=== PATIENT | female | born 1985 ===

== ENCOUNTER 2021-07-23 16:57 | Inpatient (IN) | payer SELFPAY ==
[2021-07-23] MEDS ORDERED: PROMETHAZINE 25 MG TAB PO PRN (17:17)
[2021-07-23] MEDS ORDERED: ONDANSETRON 4 MG/2 ML INJ IV PRN (17:17)
[2021-07-23] MEDS ORDERED: ACETAMINOPHEN 325 MG TAB PO PRN (17:17)
[2021-07-23] MEDS ORDERED: CARBOPROST TROMETHAMINE 250 MCG/1 ML INJ IM PRN (17:17)
[2021-07-23] MEDS ORDERED: METHYLERGONOVINE MALEATE 0.2 MG/ML VIAL IM PRN (17:17)
[2021-07-23] MEDS ORDERED: miSOPROStol 200 MCG TAB PR PRN (17:17)
[2021-07-23] MEDS ORDERED: OXYTOCIN 10 UNIT/1 ML INJ IM PRN (17:17)
[2021-07-23] MEDS ORDERED: NalbUPHINE 10 MG/1 ML INJ IV PRN (17:17)
[2021-07-23] MEDS ORDERED: ePHEDrine SULFATE 50 MG/1 ML INJ IV PRN (17:17)
[2021-07-23] MEDS ORDERED: TERBUTALINE 1 MG/1 ML INJ SUB-Q PRN (17:17)
[2021-07-23] MEDS ORDERED: NALOXONE 0.4 MG/1 ML INJ IV PRN (17:17)
[2021-07-23] MEDS ORDERED: MINERAL OIL 30 ML ORAL LIQD PO PRN (17:17)
[2021-07-23] MEDS ORDERED: LOPERAMIDE 2 MG CAP PO PRN (17:17)
[2021-07-23] MEDS ORDERED: OXYTOCIN DRIP 30 UNITS/500 ML BAG IV SCH (18:00)
[2021-07-23 19:31] LABS: Hematocrit 39.8 % (30.3-42.9); Hemoglobin 13.1 gm/dl (10.1-14.3); Mean Corpuscular HGB Conc 33 % (30-34); Mean Corpuscular Volume 99 fl (79-97); Platelet Count 149 K/mm3 (140-440); Red Blood Count 4.03 M/mm3 (3.65-5.03); Red Cell Distribution Width 13.7 % (13.2-15.2)
[2021-07-23] MEDS ORDERED: LIDOCAINE (2%) 20 MG/1 ML VIAL 20 ML MDV INFILTRATI ONE (19:45)
[2021-07-23 19:52] LABS: Alanine Aminotransferase 22 units/L (7-56); Albumin 2.9 g/dL (3.9-5); Blood Urea Nitrogen 11 mg/dL (7-17); Calcium 8.6 mg/dL (8.4-10.2); Hemolysis Index 16
[2021-07-23 19:58] LABS: BUN/Creatinine Ratio 22
[2021-07-23] MEDS ORDERED: DINOPROSTONE 10 MG VAG SUPP VG ONE (21:00)
--- NOTE | 2021-07-23 21:54 | History and Physical Report ---
History of Present Illness Date of examination: 07/23/21 Date of admission: 07/23/21 Chief complaint: Low fluid SHARI 5 History of present illness: at 41.0 wks by LMP c/w U/S. Pt was seen in clinic today with PIH symptoms and U/S there at [facility] with SHARI 5; [facility] covers this practice hence pt sent to [facility] and admitted for delivery. records show rubella non-immune, advanced maternal age, previous ectopic preg in 2013; quad screen normal, GC/Chlam neg; pap with ASCUS, HPV neg; O positive, neg ab screen, RPR neg, HIV neg, Hep BsAg neg, GBS positive Past History Past Medical History: other (AMA, gBS+, Gest HTN) Past Surgical History: other (ectopic preg tx NON-surgically at [facility] in 2013) Social history: no significant social history - Obstetrical History Expected Date of Delivery: 07/16/21 Actual Gestation: 41 Week(s) 0 Day(s) : 2 Induced : 1 (ectopic preg) Number of Living Children: 0 Medications and Allergies Allergies Allergy/AdvReac Type Severity Reaction Status Date / Time No Known Allergies Allergy Unverified 07/23/21 19:20 Active Meds: Active Medications Acetaminophen (Acetaminophen 325 Mg Tab) 650 mg PO Q4H PRN PRN Reason: Pain, Mild (1-3) Carboprost Tromethamine (Carboprost Tromethamine 250 Mcg/1 Ml Inj) 250 mcg IM ONCE PRN PRN Reason: Uterine Bleeding Ephedrine Sulfate (Ephedrine Sulfate 50 Mg/1 Ml Inj) 10 mg IV Q2M PRN PRN Reason: Hypotension Fentanyl (Fentanyl 100 Mcg/2 Ml Inj) 100 mcg IV Q2H PRN PRN Reason: Pain,Severe (7-10) LABOR PAIN Lactated Ringer's (Lactated Ringers) 1,000 mls @ 125 mls/hr IV DIRECT WALESKA Oxytocin/Sodium Chloride (Pitocin/Ns 30 Unit/500ml) 30 units in 500 mls @ 40 mls/hr IV TITR WALESKA; Protocol Loperamide HCl (Loperamide 2 Mg Cap) 2 mg PO ONCE PRN PRN Reason: give with Hemabate Methylergonovine Maleate (Methylergonovine Maleate 0.2 Mg/Ml Vial) 0.2 mg IM ONCE PRN PRN Reason: Uterine Bleeding Mineral Oil (Mineral Oil 30 Ml Oral Liqd) 30 ml PO QHS PRN PRN Reason: Constipation Misoprostol (Misoprostol 200 Mcg Tab) 800 mcg MI ONCE PRN PRN Reason: Uterine Bleeding Nalbuphine HCl (Nalbuphine 10 Mg/1 Ml Inj) 10 mg IV Q2H PRN PRN Reason: Pain, Moderate (4-6) Naloxone HCl (Naloxone 0.4 Mg/1 Ml Inj) 0.1 mg IV Q2MIN PRN PRN Reason: Res Rate </= 8 or 02 SAT < 92% Ondansetron HCl (Ondansetron 4 Mg/2 Ml Inj) 4 mg IV Q8H PRN PRN Reason: Nausea And Vomiting Oxytocin (Oxytocin 10 Unit/1 Ml Inj) 10 unit IM ONCE PRN PRN Reason: Uterine Bleeding Promethazine HCl (Promethazine 25 Mg Tab) 25 mg PO Q6H PRN PRN Reason: Nausea And Vomiting Terbutaline Sulfate (Terbutaline 1 Mg/1 Ml Inj) 0.25 mg SUB-Q ONCE PRN PRN Reason: Hyperstimulation/Hypertonicity Review of Systems All systems: negative (sent for tx of PIH symptoms) - Vital Signs Vital signs: Vital Signs Pulse BP 66 167/100 07/23/21 18:42 07/23/21 18:42 Temp Pulse Resp BP Pulse Ox 98.4 F 71 120/78 98 07/23/21 19:11 07/23/21 21:43 07/23/21 21:42 07/23/21 21:43 - Physical Exam Breasts: Positive: deferred Cardiovascular: Regular rate Lungs: Positive: Normal air movement Abdomen: Positive: normal appearance, soft Genitourinary (Female): Positive: normal external genitalia Vagina: Positive: normal moisture Uterus: Positive: enlarged (non-tender, gravid) Extremities: Positive: normal - Obstetrical FHR: category 1 Uterine Contraction Monitor Mode: External Cervical Dilatation: 0 Cervical Effacement Percentage: 0 Uterine Contraction Pattern: Absent Results Result Diagrams: 07/23/21 19:00 07/23/21 19:00 Abnormal lab results 07/23/21 07/23/21 Range/Units 19:00 19:00 MCV 99 H (79-97) fl MCH 33 H (28-32) pg Sodium 134 L (137-145) mmol/L Carbon Dioxide 21 L (22-30) mmol/L Creatinine 0.5 L (0.6-1.2) mg/dL Alkaline Phosphatase 222 H (35-129) units/L Total Protein 6.2 L (6.3-8.2) g/dL Albumin 2.9 L (3.9-5) g/dL All other labs normal. Assessment and Plan Postterm with PIH and oligohydramnios, normal BP, GBS+, advanced maternal age; H/O ectopic with no surg done, unclear how they treated ectopic, pt states she only got pain med. 1. Admit to labor and delivery, labetalol 100mg bid 2. ROM plus done and same negative 3. Cervidil placed after u/s verified presentation vertex 4. Will treat with mag sulfate for severe preeclampsia 5. Amp for GBS+ when 4cm dilated or jacobo every 2min in latent labor 6. May have IV pain med or epidural Plan of care discussed with pt in maur[place], and pt agreeable; expect
[2021-07-23] MEDS: LACTATED RINGERS 1,000 ML IV SCH (22:45)
[2021-07-24] MEDS: LACTATED RINGERS 1,000 ML IV SCH ×2 (01:56→13:38)
--- NOTE | 2021-07-24 04:33 | Event Note ---
Date: 07/24/21 Pt is comfortable sleeping in right lateral, FHR category I and no ctx seen with cervidil in place. Will continue labetalol 100mg bid and start magnesium sulfate if severe preeclampsia. Expect .
[2021-07-24] MEDS ORDERED: AMPICILLIN/NS 2 GM/100 ML 2 GM/100 ML BAG IV ONE (10:00)
[2021-07-24] MEDS ORDERED: OXYTOCIN DRIP 30 UNITS/500 ML BAG IV SCH (11:00)
[2021-07-24] MEDS ORDERED: BUTORPHANOL 2 MG/1 ML INJ IV PRN (13:40)
[2021-07-24] MEDS: fentaNYL 100 MCG/2 ML INJ IV PRN ×2 (14:07→20:06)
[2021-07-24] MEDS: AMPICILLIN/NS 1 GM/50 ML 1 GM/50 ML BAG IV SCH ×2 (14:26→23:38)
--- NOTE | 2021-07-24 18:03 | Progress Note ---
Subjective - Subjective Date of service: 07/24/21 Interval history: IUPC placed with no complications Cervix 4cm/80/0 FHT Category 1 Ocytocin at 4mu/min continue current plan of care expect CUONG Caballero MD Objective - Vital Signs Vital Signs: Vital Signs - 12hr 07/24/21 07/24/21 07/24/21 06:04 06:09 06:14 Temperature Pulse Rate 98 H 87 90 Blood Pressure O2 Sat by Pulse 98 96 98 Oximetry O2 Sat by Pulse Oximetry [ Bilateral Throughout] 07/24/21 07/24/21 07/24/21 06:19 06:24 06:29 Temperature Pulse Rate 89 97 H 82 Blood Pressure 122/67 O2 Sat by Pulse 98 98 97 Oximetry O2 Sat by Pulse Oximetry [ Bilateral Throughout] 07/24/21 07/24/21 07/24/21 06:51 06:52 06:57 Temperature 98.1 F Pulse Rate 98 H 80 Blood Pressure O2 Sat by Pulse 98 98 Oximetry O2 Sat by Pulse Oximetry [ Bilateral Throughout] 07/24/21 07/24/21 07/24/21 06:59 07:02 07:07 Temperature Pulse Rate 81 93 H 89 Blood Pressure 123/67 O2 Sat by Pulse 96 97 Oximetry O2 Sat by Pulse Oximetry [ Bilateral Throughout] 07/24/21 07/24/21 07/24/21 07:10 07:12 07:17 Temperature Pulse Rate 102 H 89 Blood Pressure O2 Sat by Pulse 97 97 Oximetry O2 Sat by Pulse 97 Oximetry [ Bilateral Throughout] 07/24/21 07/24/21 07/24/21 07:22 07:27 07:29 Temperature Pulse Rate 100 H 112 H 105 H Blood Pressure 143/91 O2 Sat by Pulse 97 98 94 Oximetry O2 Sat by Pulse Oximetry [ Bilateral Throughout] 07/24/21 07/24/21 07/24/21 07:30 07:32 07:37 Temperature Pulse Rate 94 H 97 H 96 H Blood Pressure 137/74 O2 Sat by Pulse 97 98 Oximetry O2 Sat by Pulse Oximetry [ Bilateral Throughout] 07/24/21 07/24/21 07/24/21 07:42 07:47 07:52 Temperature Pulse Rate 91 H 85 89 Blood Pressure O2 Sat by Pulse 97 97 97 Oximetry O2 Sat by Pulse Oximetry [ Bilateral Throughout] 07/24/21 07/24/2121 07:57 07:59 08:02 Temperature Pulse Rate 85 84 89 Blood Pressure 145/85 O2 Sat by Pulse 97 93 97 Oximetry O2 Sat by Pulse Oximetry [ Bilateral Throughout] 07/24/21 07/24/21 07/24/21 08:07 08:12 08:17 Temperature Pulse Rate 101 H 86 83 Blood Pressure O2 Sat by Pulse 97 98 98 Oximetry O2 Sat by Pulse Oximetry [ Bilateral Throughout] 07/24/21 07/24/21 07/24/21 08:22 08:27 08:29 Temperature Pulse Rate 101 H 83 80 Blood Pressure 128/69 O2 Sat by Pulse 97 97 Oximetry O2 Sat by Pulse Oximetry [ Bilateral Throughout] 07/24/21 07/24/21 07/24/21 08:32 08:37 08:42 Temperature Pulse Rate 85 88 92 H Blood Pressure O2 Sat by Pulse 96 97 97 Oximetry O2 Sat by Pulse Oximetry [ Bilateral Throughout] 07/24/21 07/24/21 07/24/21 08:47 08:52 08:57 Temperature Pulse Rate 104 H 92 H 88 Blood Pressure O2 Sat by Pulse 98 97 97 Oximetry O2 Sat by Pulse Oximetry [ Bilateral Throughout] 07/24/21 07/24/21 07/24/21 09:00 10:14 10:53 Temperature Pulse Rate 86 89 83 Blood Pressure 136/65 136/65 145/79 O2 Sat by Pulse Oximetry O2 Sat by Pulse Oximetry [ Bilateral Throughout] 07/24/21 07/24/21 07/24/21 11:03 11:08 11:13 Temperature Pulse Rate 70 75 80 Blood Pressure O2 Sat by Pulse 100 100 100 Oximetry O2 Sat by Pulse Oximetry [ Bilateral Throughout] 07/24/21 07/24/21 07/24/21 11:18 11:23 11:28 Temperature Pulse Rate 88 71 74 Blood Pressure O2 Sat by Pulse 100 100 100 Oximetry O2 Sat by Pulse Oximetry [ Bilateral Throughout] 07/24/21 07/24/21 07/24/21 11:33 11:38 11:43 Temperature Pulse Rate 103 H 81 97 H Blood Pressure O2 Sat by Pulse 100 100 100 Oximetry O2 Sat by Pulse Oximetry [ Bilateral Throughout] 07/24/21 07/24/21 07/24/21 11:48 11:52 11:53 Temperature Pulse Rate 98 H 78 71 Blood Pressure 136/75 O2 Sat by Pulse 100 100 Oximetry O2 Sat by Pulse Oximetry [ Bilateral Throughout] 07/24/21 07/24/21 07/24/21 11:58 12:03 12:08 Temperature Pulse Rate 72 83 76 Blood Pressure O2 Sat by Pulse 100 100 100 Oximetry O2 Sat by Pulse Oximetry [ Bilateral Throughout] 07/24/21 07/24/21 07/24/21 12:13 12:18 12:23 Temperature Pulse Rate 91 H 80 71 Blood Pressure O2 Sat by Pulse 100 100 100 Oximetry O2 Sat by Pulse Oximetry [ Bilateral Throughout] 07/24/21 07/24/21 07/24/21 12:28 12:33 12:38 Temperature Pulse Rate 89 73 74 Blood Pressure O2 Sat by Pulse 100 100 100 Oximetry O2 Sat by Pulse Oximetry [ Bilateral Throughout] 07/24/21 07/24/21 07/24/21 12:43 12:48 12:51 Temperature Pulse Rate 76 87 68 Blood Pressure 152/75 O2 Sat by Pulse 100 100 Oximetry O2 Sat by Pulse Oximetry [ Bilateral Throughout] 07/24/21 07/24/21 07/24/21 12:53 12:58 13:03 Temperature Pulse Rate 96 H 92 H 84 Blood Pressure O2 Sat by Pulse 100 100 100 Oximetry O2 Sat by Pulse Oximetry [ Bilateral Throughout] 07/24/21 07/24/21 07/24/21 13:08 13:13 13:18 Temperature Pulse Rate 72 89 85 Blood Pressure O2 Sat by Pulse 100 100 100 Oximetry O2 Sat by Pulse Oximetry [ Bilateral Throughout] 07/24/21 07/24/21 07/24/21 13:31 13:36 13:41 Temperature Pulse Rate 76 69 74 Blood Pressure O2 Sat by Pulse 100 98 97 Oximetry O2 Sat by Pulse Oximetry [ Bilateral Throughout] 07/24/21 07/24/21 07/24/21 13:46 13:51 13:55 Temperature Pulse Rate 73 80 70 Blood Pressure O2 Sat by Pulse 99 99 94 Oximetry O2 Sat by Pulse Oximetry [ Bilateral Throughout] 07/24/21 07/24/21 07/24/21 13:56 14:01 14:06 Temperature Pulse Rate 76 84 63 Blood Pressure O2 Sat by Pulse 95 99 94 Oximetry O2 Sat by Pulse Oximetry [ Bilateral Throughout] 07/24/21 07/24/21 07/24/21 14:11 14:16 14:21 Temperature Pulse Rate 93 H 83 93 H Blood Pressure O2 Sat by Pulse 100 100 100 Oximetry O2 Sat by Pulse Oximetry [ Bilateral Throughout] 07/24/21 07/24/21 07/24/21 14:26 14:31 14:36 Temperature Pulse Rate 64 65 69 Blood Pressure O2 Sat by Pulse 100 100 100 Oximetry O2 Sat by Pulse Oximetry [ Bilateral Throughout] 07/24/21 07/24/21 07/24/21 14:41 14:46 14:51 Temperature Pulse Rate 69 68 96 H Blood Pressure O2 Sat by Pulse 100 100 100 Oximetry O2 Sat by Pulse Oximetry [ Bilateral Throughout] 07/24/21 07/24/21 07/24/21 14:56 14:57 15:01 Temperature 98.6 F Pulse Rate 77 69 81 Blood Pressure 157/78 O2 Sat by Pulse 100 100 Oximetry O2 Sat by Pulse Oximetry [ Bilateral Throughout] 07/24/21 07/24/21 07/24/21 15:06 15:11 15:16 Temperature Pulse Rate 76 83 68 Blood Pressure O2 Sat by Pulse 100 100 100 Oximetry O2 Sat by Pulse Oximetry [ Bilateral Throughout] 07/24/21 07/24/21 07/24/21 15:21 15:26 15:31 Temperature Pulse Rate 73 68 78 Blood Pressure 152/75 O2 Sat by Pulse 100 100 100 Oximetry O2 Sat by Pulse Oximetry [ Bilateral Throughout] 07/24/21 07/24/21 07/24/21 15:36 15:41 15:46 Temperature Pulse Rate 72 86 66 Blood Pressure O2 Sat by Pulse 100 100 100 Oximetry O2 Sat by Pulse Oximetry [ Bilateral Throughout] 07/24/21 07/24/21 07/24/21 15:51 15:56 15:57 Temperature Pulse Rate 69 106 H 98 H Blood Pressure 182/107 O2 Sat by Pulse 100 98 Oximetry O2 Sat by Pulse Oximetry [ Bilateral Throughout] 07/24/21 07/24/21 07/24/21 16:01 16:06 16:11 Temperature Pulse Rate 78 78 71 Blood Pressure O2 Sat by Pulse 100 100 100 Oximetry O2 Sat by Pulse Oximetry [ Bilateral Throughout] 07/24/21 07/24/21 07/24/21 16:16 16:44 16:48 Temperature Pulse Rate 92 H 89 71 Blood Pressure O2 Sat by Pulse 99 98 94 Oximetry O2 Sat by Pulse Oximetry [ Bilateral Throughout] 07/24/21 07/24/21 07/24/21 16:49 16:54 16:55 Temperature Pulse Rate 70 71 76 Blood Pressure O2 Sat by Pulse 96 96 91 Oximetry O2 Sat by Pulse Oximetry [ Bilateral Throughout] 07/24/21 07/24/21 07/24/21 16:56 16:58 16:59 Temperature Pulse Rate 73 81 83 Blood Pressure 164/94 157/95 O2 Sat by Pulse 97 Oximetry O2 Sat by Pulse Oximetry [ Bilateral Throughout] 07/24/21 07/24/21 07/24/21 17:04 17:06 17:09 Temperature Pulse Rate 78 76 101 H Blood Pressure O2 Sat by Pulse 96 94 99 Oximetry O2 Sat by Pulse Oximetry [ Bilateral Throughout] 07/24/21 07/24/21 07/24/21 17:14 17:19 17:24 Temperature Pulse Rate 101 H 76 71 Blood Pressure O2 Sat by Pulse 98 100 100 Oximetry O2 Sat by Pulse Oximetry [ Bilateral Throughout] 07/24/21 07/24/21 07/24/21 17:26 17:29 17:34 Temperature Pulse Rate 65 70 72 Blood Pressure 151/76 O2 Sat by Pulse 100 100 Oximetry O2 Sat by Pulse Oximetry [ Bilateral Throughout] 07/24/21 07/24/21 07/24/21 17:39 17:44 17:49 Temperature Pulse Rate 73 78 77 Blood Pressure O2 Sat by Pulse 100 100 100 Oximetry O2 Sat by Pulse Oximetry [ Bilateral Throughout] 07/24/21 07/24/21 07/24/21 17:54 17:57 17:59 Temperature Pulse Rate 63 67 65 Blood Pressure 176/99 O2 Sat by Pulse 100 100 Oximetry O2 Sat by Pulse Oximetry [ Bilateral Throughout] - Labs Labs: Abnormal Labs 07/23/21 07/23/21 19:00 19:00 MCV 99 H MCH 33 H Sodium 134 L Carbon Dioxide 21 L Creatinine 0.5 L Alkaline Phosphatase 222 H Total Protein 6.2 L Albumin 2.9 L Laboratory Results - last 24 hr 07/23/21 07/23/21 07/23/21 19:00 19:00 19:00 WBC 6.6 RBC 4.03 Hgb 13.1 Hct 39.8 MCV 99 H MCH 33 H MCHC 33 RDW 13.7 Plt Count 149 Sodium Potassium Chloride Carbon Dioxide Anion Gap BUN Creatinine Estimated GFR BUN/Creatinine Ratio Glucose Uric Acid Calcium Total Bilirubin AST ALT Alkaline Phosphatase Lactate Dehydrogenase Total Protein Albumin Albumin/Globulin Ratio Membranes Rupture Syphilis IgG Antibody Nonreactive Coronavirus (PCR) Blood Type O POSITIVE Antibody Screen Negative 07/23/21 07/23/21 07/24/21 19:00 Unknown 00:13 WBC RBC Hgb Hct MCV MCH MCHC RDW Plt Count Sodium 134 L Potassium 4.2 Chloride 101.3 Carbon Dioxide 21 L Anion Gap 16 BUN 11 Creatinine 0.5 L Estimated GFR > 60 BUN/Creatinine Ratio 22 Glucose 94 Uric Acid 3.6 Calcium 8.6 Total Bilirubin 0.20 AST 21 ALT 22 Alkaline Phosphatase 222 H Lactate Dehydrogenase Total Protein 6.2 L Albumin 2.9 L Albumin/Globulin Ratio 0.9 Membranes Rupture Negative Syphilis IgG Antibody Coronavirus (PCR) Blood Type Antibody Screen 07/24/21 07/24/21 00:13 08:36 WBC RBC Hgb Hct MCV MCH MCHC RDW Plt Count Sodium Potassium Chloride Carbon Dioxide Anion Gap BUN Creatinine Estimated GFR BUN/Creatinine Ratio Glucose Uric Acid Calcium Total Bilirubin AST ALT Alkaline Phosphatase Lactate Dehydrogenase 169 Total Protein Albumin Albumin/Globulin Ratio Membranes Rupture Syphilis IgG Antibody Coronavirus (PCR) Negative Blood Type Antibody Screen
[2021-07-24] MEDS ORDERED: NALOXONE 2 MG/2 ML INJ IV PRN (21:52)
[2021-07-24] MEDS ORDERED: ePHEDrine SULFATE 50 MG/1 ML INJ IV PRN (21:52)
--- NOTE | 2021-07-24 21:52 | Anesthesia Consultation ---
Anesthesia Consult and Med Hx Date of service: 07/24/21 - Airway Anesthetic Teeth Evaluation: Good ROM Head & Neck: Adequate Mental/Hyoid Distance: Adequate Mallampati Class: Class II Intubation Access Assessment: Probably Good - Pulmonary Exam CTA: Yes - Cardiac Exam Cardiac Exam: RRR - Pre-Operative Health Status ASA Pre-Surgery Classification: ASA3 Proposed Anesthetic Plan: Epidural - Cardiovascular System Hx Hypertension: Yes - Hematic Hx Anemia: No - Other Systems Hx Alcohol Use: No
[2021-07-24] MEDS ORDERED: fentaNYL-BUPIV 2 MCG/ML-0.125% 200 MCG/100 ML BAG EPIDURAL SCH (22:00)
--- NOTE | 2021-07-24 22:19 | Progress Note ---
Labor Epidural - Labor Epidural Start Time: 22:05 Stop Time: 22:08 Procedure: Patient is requesting epidural for labor pain. H&P, and labs reviewed. Procedure explained, questions answered, consent obtained. Patient in sitting position with blood pressure cuff and pulse ox on and working. Timeout performed immediately before start of procedure. Sterile Duraprep prep/drape. 3 mL 1% lidocaine skin wheal at L[3]-L[4]. 17-gauge tuohy epidural needle advanced to [id number] with saline at [7] cm. 25-gauge spinal needle advanced until clear, free-flowing CSF. Intrathecal dexmedetomidine [5] mcg administered and needle removed. Epidural catheter advanced to [12] cm, negative aspiration for blood and csf, negative test dose 3 ml 1.5% lidocaine with epinephrine. Sterile sponge and tegaderm applied, followed by tape reinforcement. Patient tolerated procedure well.
--- NOTE | 2021-07-25 00:45 | Progress Note ---
Subjective - Subjective Date of service: 07/25/21 Interval history: 9cm/0 station FHT Cat 2 [place] Q2 minutes will continue to monitor, recheck cervix in 20 minutes Kelly Caballero MD Objective - Vital Signs Vital Signs: Vital Signs - 12hr 07/24/21 07/24/21 07/24/21 12:48 12:51 12:53 Temperature Pulse Rate 87 68 96 H Blood Pressure 152/75 O2 Sat by Pulse 100 100 Oximetry 07/24/21 07/24/21 07/24/21 12:58 13:03 13:08 Temperature Pulse Rate 92 H 84 72 Blood Pressure O2 Sat by Pulse 100 100 100 Oximetry 07/24/21 07/24/21 07/24/21 13:13 13:18 13:31 Temperature Pulse Rate 89 85 76 Blood Pressure O2 Sat by Pulse 100 100 100 Oximetry 07/24/21 07/24/21 07/24/21 13:36 13:41 13:46 Temperature Pulse Rate 69 74 73 Blood Pressure O2 Sat by Pulse 98 97 99 Oximetry 07/24/21 07/24/21 07/24/21 13:51 13:55 13:56 Temperature Pulse Rate 80 70 76 Blood Pressure O2 Sat by Pulse 99 94 95 Oximetry 07/24/21 07/24/21 07/24/21 14:01 14:06 14:11 Temperature Pulse Rate 84 63 93 H Blood Pressure O2 Sat by Pulse 99 94 100 Oximetry 07/24/21 07/24/21 07/24/21 14:16 14:21 14:26 Temperature Pulse Rate 83 93 H 64 Blood Pressure O2 Sat by Pulse 100 100 100 Oximetry 07/24/21 07/24/21 07/24/21 14:31 14:36 14:41 Temperature Pulse Rate 65 69 69 Blood Pressure O2 Sat by Pulse 100 100 100 Oximetry 07/24/21 07/24/21 07/24/21 14:46 14:51 14:56 Temperature Pulse Rate 68 96 H 77 Blood Pressure O2 Sat by Pulse 100 100 100 Oximetry 07/24/21 07/24/21 07/24/21 14:57 15:01 15:06 Temperature 98.6 F Pulse Rate 69 81 76 Blood Pressure 157/78 O2 Sat by Pulse 100 100 Oximetry 07/24/21 07/24/21 07/24/21 15:11 15:16 15:21 Temperature Pulse Rate 83 68 73 Blood Pressure O2 Sat by Pulse 100 100 100 Oximetry 07/24/21 07/24/21 07/24/21 15:26 15:31 15:36 Temperature Pulse Rate 68 78 72 Blood Pressure 152/75 O2 Sat by Pulse 100 100 100 Oximetry 07/24/21 07/24/21 07/24/21 15:41 15:46 15:51 Temperature Pulse Rate 86 66 69 Blood Pressure O2 Sat by Pulse 100 100 100 Oximetry 07/24/21 07/24/21 07/24/21 15:56 15:57 16:01 Temperature Pulse Rate 106 H 98 H 78 Blood Pressure 182/107 O2 Sat by Pulse 98 100 Oximetry 07/24/21 07/24/21 07/24/21 16:06 16:11 16:16 Temperature Pulse Rate 78 71 92 H Blood Pressure O2 Sat by Pulse 100 100 99 Oximetry 07/24/21 07/24/21 07/24/21 16:44 16:48 16:49 Temperature Pulse Rate 89 71 70 Blood Pressure O2 Sat by Pulse 98 94 96 Oximetry 07/24/21 07/24/21 07/24/21 16:54 16:55 16:56 Temperature Pulse Rate 71 76 73 Blood Pressure 164/94 O2 Sat by Pulse 96 91 Oximetry 07/24/21 07/24/21 07/24/21 16:58 16:59 17:04 Temperature Pulse Rate 81 83 78 Blood Pressure 157/95 O2 Sat by Pulse 97 96 Oximetry 07/24/21 07/24/21 07/24/21 17:06 17:09 17:14 Temperature Pulse Rate 76 101 H 101 H Blood Pressure O2 Sat by Pulse 94 99 98 Oximetry 07/24/21 07/24/21 07/24/21 17:19 17:24 17:26 Temperature Pulse Rate 76 71 65 Blood Pressure 151/76 O2 Sat by Pulse 100 100 Oximetry 07/24/21 07/24/21 07/24/21 17:29 17:34 17:39 Temperature Pulse Rate 70 72 73 Blood Pressure O2 Sat by Pulse 100 100 100 Oximetry 07/24/21 07/24/21 07/24/21 17:44 17:49 17:54 Temperature Pulse Rate 78 77 63 Blood Pressure O2 Sat by Pulse 100 100 100 Oximetry 07/24/21 07/24/21 07/24/21 17:57 17:59 18:04 Temperature Pulse Rate 67 65 64 Blood Pressure 176/99 O2 Sat by Pulse 100 100 Oximetry 07/24/21 07/24/21 07/24/21 18:09 18:14 18:19 Temperature Pulse Rate 71 88 68 Blood Pressure O2 Sat by Pulse 100 100 100 Oximetry 07/24/21 07/24/21 07/24/21 18:24 18:26 18:29 Temperature Pulse Rate 75 85 89 Blood Pressure 135/101 O2 Sat by Pulse 100 100 Oximetry 07/24/21 07/24/21 07/24/21 18:34 18:39 18:44 Temperature Pulse Rate 87 66 74 Blood Pressure O2 Sat by Pulse 100 100 100 Oximetry 07/24/21 07/24/21 07/24/21 18:49 18:54 18:56 Temperature Pulse Rate 72 67 67 Blood Pressure 179/86 154/83 O2 Sat by Pulse 100 94 Oximetry 07/24/21 07/24/21 07/24/21 18:59 19:04 19:09 Temperature Pulse Rate 82 87 81 Blood Pressure O2 Sat by Pulse 100 100 100 Oximetry 07/24/21 07/24/21 07/24/21 19:14 19:19 19:24 Temperature Pulse Rate 73 76 71 Blood Pressure O2 Sat by Pulse 100 100 100 Oximetry 07/24/21 07/24/21 07/24/21 19:27 19:29 19:34 Temperature Pulse Rate 88 74 54 L Blood Pressure 170/89 O2 Sat by Pulse 100 100 Oximetry 07/24/21 07/24/21 07/24/21 19:39 20:00 20:04 Temperature 98.7 F Pulse Rate 87 75 Blood Pressure O2 Sat by Pulse 100 100 Oximetry 07/24/21 07/24/21 07/24/21 20:09 20:14 20:19 Temperature Pulse Rate 74 71 72 Blood Pressure O2 Sat by Pulse 100 100 98 Oximetry 07/24/21 07/24/21 07/24/21 20:24 20:29 20:34 Temperature Pulse Rate 64 70 75 Blood Pressure O2 Sat by Pulse 100 100 100 Oximetry 07/24/21 07/24/21 07/24/21 20:39 20:44 20:45 Temperature Pulse Rate 72 84 86 Blood Pressure O2 Sat by Pulse 100 99 0 L Oximetry 07/24/21 07/24/21 07/24/21 20:49 20:54 20:59 Temperature Pulse Rate 80 97 H 85 Blood Pressure O2 Sat by Pulse 99 100 99 Oximetry 07/24/21 07/24/21 07/24/21 21:04 21:09 21:14 Temperature Pulse Rate 87 74 88 Blood Pressure O2 Sat by Pulse 100 100 100 Oximetry 07/24/21 07/24/21 07/24/21 21:19 21:24 21:29 Temperature Pulse Rate 71 75 96 H Blood Pressure O2 Sat by Pulse 99 99 100 Oximetry 07/24/21 07/24/21 07/24/21 21:34 21:39 21:44 Temperature Pulse Rate 98 H 85 93 H Blood Pressure O2 Sat by Pulse 99 100 100 Oximetry 07/24/21 07/24/21 07/24/21 21:49 21:54 21:56 Temperature Pulse Rate 102 H 80 90 Blood Pressure 174/104 O2 Sat by Pulse 100 100 Oximetry 07/24/21 07/24/21 07/24/21 21:59 22:04 22:09 Temperature Pulse Rate 94 H 89 93 H Blood Pressure 168/86 O2 Sat by Pulse 100 97 Oximetry 07/24/21 07/24/21 07/24/21 22:10 22:15 22:16 Temperature Pulse Rate 89 80 82 Blood Pressure 157/84 O2 Sat by Pulse 98 97 Oximetry 07/24/21 07/24/21 07/24/21 22:20 22:25 22:26 Temperature Pulse Rate 78 81 116 H Blood Pressure 157/83 O2 Sat by Pulse 99 97 Oximetry 07/24/21 07/24/21 07/24/21 22:30 22:32 22:35 Temperature Pulse Rate 91 H 87 96 H Blood Pressure 134/69 O2 Sat by Pulse 97 94 97 Oximetry 07/24/21 07/24/21 07/24/21 22:39 22:40 22:45 Temperature Pulse Rate 89 103 H 90 Blood Pressure 139/66 O2 Sat by Pulse 94 97 98 Oximetry 07/24/21 07/24/21 07/24/21 22:50 22:55 22:56 Temperature Pulse Rate 80 78 75 Blood Pressure 121/59 O2 Sat by Pulse 100 99 Oximetry 07/24/21 07/24/21 07/24/21 23:00 23:05 23:10 Temperature Pulse Rate 81 78 81 Blood Pressure O2 Sat by Pulse 99 100 99 Oximetry 07/24/21 07/24/21 07/24/21 23:14 23:15 23:20 Temperature 99.4 F Pulse Rate 82 75 78 Blood Pressure 135/71 O2 Sat by Pulse 100 100 Oximetry 07/24/21 07/24/21 07/24/21 23:25 23:30 23:35 Temperature Pulse Rate 79 79 80 Blood Pressure 148/70 O2 Sat by Pulse 100 92 99 Oximetry 07/24/21 07/24/21 07/24/21 23:40 23:44 23:45 Temperature Pulse Rate 74 83 79 Blood Pressure 131/66 O2 Sat by Pulse 99 99 Oximetry 07/24/21 07/24/21 07/25/21 23:50 23:55 00:00 Temperature Pulse Rate 86 85 98 H Blood Pressure O2 Sat by Pulse 100 99 100 Oximetry 07/25/21 07/25/21 07/25/21 00:05 00:10 00:15 Temperature Pulse Rate 83 108 H 107 H Blood Pressure O2 Sat by Pulse 100 100 100 Oximetry 07/25/21 07/25/21 07/25/21 00:20 00:25 00:31 Temperature Pulse Rate 85 89 118 H Blood Pressure O2 Sat by Pulse 100 100 99 Oximetry 07/25/21 07/25/21 07/25/21 00:36 00:37 00:41 Temperature Pulse Rate 79 159 H 81 Blood Pressure O2 Sat by Pulse 100 94 99 Oximetry - Labs Labs: Abnormal Labs 07/23/21 07/23/21 19:00 19:00 MCV 99 H MCH 33 H Sodium 134 L Carbon Dioxide 21 L Creatinine 0.5 L Alkaline Phosphatase 222 H Total Protein 6.2 L Albumin 2.9 L Laboratory Results - last 24 hr 07/24/21 07/24/21 07/24/21 00:13 00:13 08:36 Uric Acid 3.6 Lactate Dehydrogenase 169 Coronavirus (PCR) Negative
[2021-07-25] MEDS ORDERED: WATER FOR IRRIG STERILE 1,500 ML BOTTLE IR ONE (02:15)
[2021-07-25] MEDS ORDERED: SODIUM CHLORIDE 0.9% IRR 1,500 ML BOTTLE IR ONE (02:15)
[2021-07-25] MEDS ORDERED: SODIUM CHLORIDE 0.9% 500 ML 500 ML ONE (02:26)
[2021-07-25] MEDS ORDERED: BUPIVACAINE/PF (0.25%) 2.5 MG/ML 30 ML VIAL INFILTRATI ONE (02:26)
[2021-07-25] MEDS ORDERED: LACTATED RINGERS 1,000 ML ONE (02:26)
[2021-07-25] MEDS ORDERED: dexAMETHasone 20 MG/5 ML VIAL ONE (02:26)
[2021-07-25] MEDS ORDERED: OXYTOCIN 10 UNIT/1 ML INJ ONE (02:26)
[2021-07-25] MEDS ORDERED: LIDOCAINE 2%/EPINEPHRINE 1:200,000 VIAL (20 ML) INFILTRATI ONE (02:26)
[2021-07-25] MEDS ORDERED: KETOROLAC 30 MG/1 ML INJ ONE (02:27)
[2021-07-25] MEDS ORDERED: ceFAZolin 1 GM VIAL ONE (02:34)
[2021-07-25] MEDS ORDERED: PROMETHAZINE 25 MG RECT SUPP PR PRN (03:03)
[2021-07-25] MEDS ORDERED: SENNOSIDES 8.6 MG TAB PO PRN (03:03)
[2021-07-25] MEDS ORDERED: NALOXONE 0.4 MG/1 ML INJ IV PRN (03:03)
[2021-07-25] MEDS ORDERED: MORPHINE 2 MG/1 ML INJ IV PRN (03:03)
[2021-07-25] MEDS ORDERED: SIMETHICONE 80 MG CHEW TAB PO PRN (03:03)
[2021-07-25] MEDS ORDERED: HYDROcodone/ACETAMINOPHEN 5-325 MG TAB PO PRN (03:03)
[2021-07-25] MEDS ORDERED: MORPHINE 4 MG/1 ML INJ IV PRN (03:03)
[2021-07-25] MEDS ORDERED: HYDROCORTISONE 25 MG RECTAL SUPP PR PRN (03:03)
[2021-07-25] MEDS ORDERED: WITCH HAZEL/ GLYCERIN PAD TP PRN (03:03)
[2021-07-25] MEDS ORDERED: LANOLIN/ZINC/DIMETHICONE (LANSINOH) 7 GM TP PRN (03:03)
[2021-07-25] MEDS ORDERED: MAGNESIUM HYDROXIDE (MOM) ORAL LIQD UDC PO PRN (03:03)
[2021-07-25] MEDS ORDERED: IBUPROFEN 600 MG TAB PO PRN (03:03)
[2021-07-25] MEDS ORDERED: KETOROLAC 30 MG/1 ML INJ IV PRN ×2 (03:03)
--- NOTE | 2021-07-25 03:03 | Procedure Note ---
OB Delivery Note - Delivery Date of Delivery: 07/25/21 Surgeon: MARIO STANTON Estimated blood loss: 500cc - Section Preop diagnosis: arrest of descent, nonreassuring FHR tracing, other (early chorioamnionitis) Postop diagnosis: same (delivered with true knot in cord) section procedure: primary low transverse Disposition: PACU Complications: uterine atony (lower segment uterine atony that responded to one dose of methergine 0.2mg IM) Narrative: Preop diagnosis: IUP at 41+ weeks,oligohydamnios, Arrest of descent, chorioamnionitis and nonreassuring heart tracing Postop diagnosis: Same, delivered with true knot Procedure: Primary low transverse section Surgeon: Dr. Mario Stanton Anesthesia spinal Complications: lower segment uterine atony that responded to 1 dose of Methergine 0.2 mg IM EBL 500 ml IV fluids 1000 mL Urine output 200 mL, blood-tinged prior to skin incision Drains Dewitt to gravity Findings: Viable female with weight 2892gms and 8/9, normal uterus tubes and ovaries bilaterally Procedure: Patient was consented in room 2004, taken to the operating room for stat section. She was then placed in the dorsal supine position with a leftward tilt. The abdomen was prepped and draped in a sterile fashion, and a timeout was verified. Adequate anesthesia was confirmed prior to the skin incision. A Pfannenstiel skin incision was made with a scalpel taken down to the underlying structures and the fascia was incised in the midline. The abdomen was entered with a Dean Velasco incision. The uterine incision was then made sharply with a scalpel. The inferior and superior aspect of the uterine incisions were extended bluntly, the baby's head was delivered atraumatically. The remainder of the delivery was uncomplicated, no nuchal cord. The cord was clamped and cut and baby handed to waiting NICU team. A segment of cord obtained for cord gas. An intact placenta with three-vessel cord delivered manually. The uterus was then cleared of all clots and debris and the uterus exteriorized. The uterine incision was closed in 2 layers of 0 vicryl with excellent hemostasis. Lower uterine segment was noted to be atonic and 1 dose of Methergine 0.2 mg IM was given with excellent response. The abdomen was then irrigated with warm normal saline and the uterus placed back into the abdomen atraumatically. A second look at the uterine incision assured hemostasis. The peritoneum was closed with 2-0 Vicryl, the rectus muscles approximated with 2-0 Vicryl, and the fascia closed with 0 Vicryl in the usual fashion. The subcuticular structures were closed with interrupted sutures of 3-0 Vicryl and the skin closed with 4-0 Vicryl on a Richar needle. A pressure dressing was applied. All sponge needle and instrument counts were correct x2. There were no complications. Mom and baby stable to PACU. EBL 500 mL Kelly Stanton MD
--- NOTE | 2021-07-25 09:51 | Post Anesthesia Evaluation ---
- Post Anesthesia Evaluation Patient Participated: Yes Airway Patent: Yes Stable Respiratory Function: Yes Nausea/Vomiting: No Temp > 96.8F: Yes Pain Manageable: Yes Adequeate Hydration: Yes Anesthesia Complications: No Block Receding Appropriately: Yes
[2021-07-25] MEDS: oxyCODONE /ACETAMINOPHEN 5-325MG TAB PO PRN (17:23)
[2021-07-25 18:26] LABS: Hematocrit 36.1 % (30.3-42.9); Hemoglobin 11.7 gm/dl (10.1-14.3)
[2021-07-26] MEDS: oxyCODONE /ACETAMINOPHEN 5-325MG TAB PO PRN (03:43)
[2021-07-26] MEDS: IBUPROFEN 800 MG TAB PO PRN ×2 (10:08→22:14)
--- NOTE | 2021-07-26 10:18 | Progress Note ---
Subjective - Subjective Date of service: 07/26/21 Interval history: POD#1 Continue routine postop care HB stable 11.7 postop VSS incision c/d/i maternal/ status reassuring Kelly Caballero MD Patient reports: appetite normal, voiding normally, pain well controlled, a mbulating normally : doing well Objective - Vital Signs Latest vital signs: Vital Signs Temp Pulse Resp BP Pulse Ox Pulse Ox 07/26/21 08:13 98.2 F 72 17 112/84 97 07/26/21 05:22 98 07/26/21 03:45 98 07/26/21 02:10 98 07/25/21 23:32 97 07/25/21 23:31 98.0 F 66 18 111/68 99 07/25/21 21:11 138/88 98 07/25/21 20:22 98.0 F 66 20 138/88 100 07/25/21 20:05 98 07/25/21 17:23 16 07/25/21 15:32 97.9 F 18 113/66 07/25/21 12:26 16 Intake and Output 07/25/21 07/26/21 07/26/21 23:59 07:59 15:59 Intake Total 680 240 Output Total 2300 Balance -1620 240 Intake: Oral 680 240 Output: Urine 2300 Indwelling Catheter 900 Void 1400 Other: Total, Intake Amount 240 240 Total, Output Amount 400 # Voids Void 3 1
--- NOTE | 2021-07-27 10:13 | Progress Note ---
Assessment and Plan A: /postop day 2 S/P primary LTCS. Obesity. P: Continue routine /postop care. Encouraged patient to ambulate. Anticipate discharge home tomorrow if patient continues to do well. Subjective - Subjective Date of service: 07/27/21 Principal diagnosis: /postop day 2 S/P primary LTCS Patient reports: appetite normal, voiding normally, pain well controlled, flatus, ambulating normally, no dizzy ambulation, no nauseated : doing well Objective - Vital Signs Latest vital signs: Vital Signs Temp Pulse Resp BP BP Pulse Ox Pulse Ox 07/27/21 09:48 121/71 07/27/21 07:38 98.8 F 81 16 121/71 94 07/27/21 03:54 60 18 134/76 99 07/27/21 00:28 67 18 104/61 97 07/27/21 00:25 98.2 F 07/26/21 22:15 146/83 07/26/21 22:06 67 18 146/83 100 07/26/21 20:36 99 07/26/21 15:37 97.9 F 57 L 17 136/80 99 07/26/21 11:49 98.1 F 69 18 100/71 98 Intake and Output 07/26/21 07/27/21 07/27/21 23:59 07:59 15:59 Intake Total 240 120 240 Balance 240 120 240 Intake: Oral 240 120 240 Other: Total, Intake Amount 120 120 240 # Voids Void 1 1 1 - Exam Cardiovascular: Present: Regular rate Lungs: Present: Clear to auscultation Abdomen: Present: normal appearance, soft, normal bowel sounds. Absent: distention, tenderness, guarding, rigidity Uterus: Present: normal, firm, fundal height below umbilicus. Absent: bogginess, tenderness Extremities: Present: edema. Absent: tenderness Incision: Present: dry, intact
--- NOTE | 2021-07-28 06:49 | Progress Note ---
Assessment and Plan A: /postop day 3 S/P primary LTCS. Obesity. P: Discharge patient home today. Discussed with patient /postop discharge instructions and warning signs. Advised patient re: care of incision and activity restrictions. Advised patient to continue taking her vitamins at home. Advised patient to avoid intercourse, lifting, housework, driving, stair climbing, and tub baths (patient may take showers). Advised patient to follow up at [facility] in 1 week. Patient voiced understanding of all instructions. Subjective - Subjective Date of service: 07/28/21 Principal diagnosis: /postop day 3 S/P primary LTCS Interval history: Patient desires discharge home today. Patient reports: appetite normal, voiding normally, pain well controlled, flatu s, ambulating normally, no dizzy ambulation, no nauseated : doing well Objective - Vital Signs Latest vital signs: Vital Signs Temp Pulse Resp BP BP Pulse Ox Pulse Ox 07/28/21 04:19 97.8 F 68 20 131/83 98 07/28/21 00:24 98.0 F 71 20 120/71 97 07/27/21 21:56 88 119/86 07/27/21 20:48 98.0 F 78 20 129/83 100 07/27/21 20:15 98 07/27/21 18:02 98 07/27/21 16:02 98 07/27/21 15:38 98.5 F 79 20 122/74 97 07/27/21 14:27 98 07/27/21 12:26 98 07/27/21 11:46 98.1 F 83 20 125/64 98 07/27/21 10:30 98 07/27/21 09:48 121/71 07/27/21 08:36 98 07/27/21 07:38 98.8 F 81 16 121/71 94 Intake and Output 07/27/21 07/27/21 07/28/21 15:59 23:59 07:59 Intake Total 480 120 240 Balance 480 120 240 Intake: Oral 480 120 Intake, Free Water 240 Other: Total, Intake Amount 240 120 Voiding Method Toilet # Voids Void 1 1 1 # Bowel Movements 1 - Exam Cardiovascular: Present: Regular rate Lungs: Present: Clear to auscultation Abdomen: Present: normal appearance, soft, normal bowel sounds. Absent: distention, tenderness, guarding, rigidity Uterus: Present: normal, firm, fundal height below umbilicus. Absent: bogginess, tenderness Extremities: Present: edema. Absent: tenderness Incision: Present: dry, intact
--- NOTE | 2021-07-28 07:14 | Discharge Summary ---
Providers - Providers Date of Admission: 07/23/21 17:18 Date of discharge: 07/28/21 Attending physician: MARIO STANTON MD Primary care physician: MARIO STANTON MD Hospitalization Reason for admission: induction of labor Delivery: Procedure: primary low transverse Incision: dry, intact complications: none Discharge diagnosis: IUP at term delivered baby: female Pertinent studies: Labs Hospital course: Stable hospital course Condition at discharge: Good Disposition: 01 HOME / SELF CARE / HOMELESS - Discharge Diagnoses (1) Term delivered Status: Acute Plan - Discharge Medications Prescriptions: Ibuprofen [Motrin] 600 mg PO Q8H PRN #60 tablet PRN Reason: Pain oxyCODONE /ACETAMINOPHEN [Percocet 5/325] 1 tab PO Q6HR PRN #20 tablet PRN Reason: Pain - Provider Discharge Summary Activity: routine, no sex for 6 weeks, no heavy lifting 4 weeks, no strenuous exercise Diet: routine Instructions: routine Additional instructions: Continue taking your vitamin daily at home. Follow up at [facility] in 1 week. Call your doctor immediately for: * Fever > 100.5 * Heavy vaginal bleeding ( >1 pad per hour) * Severe persistent headache * Shortness of breath * Reddened, hot, painful area to leg or breast * Drainage or odor from incision. * Keep incision clean and dry at all times and follow doctor's instructions regarding bathing/showering - Follow up plan Follow up: PRIMARY CARE, [Referring] - 7 Days Forms: [facility] Discharge Summary, Discharge Signature Page
[2021-07-28 15:34] VITALS: BP 148/74
== END 2021-07-28 15:00 | disposition home or self-care (01) | DRG 786 ==
LOC: TRG 16:57 → APU 17:00 → TRG 17:18 → LD 17:18 → OB 07-25 05:31
PROVIDERS: ADMIT Obstetrics & Gynecology; ATTEND Obstetrics & Gynecology
PROC: 10D00Z1 Extraction of Products of Conception, Low, Open Approach (ICD-10-PCS; principal; 2021-07-25)
DX: O13.4 Gestational [pregnancy-induced] hypertension without significant proteinuria, complicating childbirth (principal); O41.1230 Chorioamnionitis, third trimester, not applicable or unspecified; O41.02X0 Oligohydramnios, second trimester, not applicable or unspecified; Z3A.41 41 weeks gestation of pregnancy; Z37.0 Single live birth; O62.1 Secondary uterine inertia; Z20.822 Contact with and (suspected) exposure to COVID-19; O99.824 Streptococcus B carrier state complicating childbirth; O48.0 Post-term pregnancy; O76 Abnormality in fetal heart rate and rhythm complicating labor and delivery; O99.214 Obesity complicating childbirth
CPT/HCPCS: 36415; 59200; 80053; 83615; 84112; 84550; 85014; 85018; 85027; 86592; 86850; 86900; 86901; 88307; G0378; J3490; J0290; J0690; J1100; J1885; J2270; J2590; J3010; J7040; J7120; U0003